=== PATIENT | female | born 1995 | race African-American/Black ===

== ENCOUNTER 2017-10-14 06:30 | Inpatient (IN) ==
[2017-10-14] MEDS ORDERED: LR 1000 ML IV 1,000 ML IV ONE (06:34)
[2017-10-14] MEDS ORDERED: AMPICILLIN VIAL 2 GRAM ONE (06:35)
[2017-10-14] MEDS ORDERED: D5LR 1L W PITOCIN 10 UNITS/L 10 UNITS/1,000 ML BAG IV ONE (06:35)
[2017-10-14] MEDS ORDERED: NS 100 ML IV 100 ML IV ONE (06:35)
[2017-10-14] MEDS ORDERED: D5 1/2 NS 1L W PITOCIN 20 UNITS/L 20 UNITS/1,000 ML BAG IV ONE ×2 (06:35→08:38)
[2017-10-14] MEDS ORDERED: NAROPIN EPIDURAL 0.2% + FENTANYL 90MCG 60 ML EPI ONE (06:35)
[2017-10-14] MEDS ORDERED: D5 1/2 NS 1000 ML 1,000 ML IV ONE (06:36)
[2017-10-14] MEDS ORDERED: FENTANYL INJ 100 mcg ONE (06:36)
[2017-10-14] MEDS ORDERED: PITOCIN IVP ONE (06:44)
[2017-10-14] MEDS ORDERED: D5LR 1L W PITOCIN 10 UNITS/L 10 UNITS/1,000 ML BAG IV PRN (06:44)
[2017-10-14] MEDS ORDERED: NUBAIN INJ 200 MG VIAL MULTIDOSE IVP PRN (06:44)
[2017-10-14] MEDS ORDERED: REGLAN INJ 10 MG VIAL IVP PRN ×2 (06:44→09:37)
[2017-10-14] MEDS ORDERED: AMPICILLIN VIAL 2 GRAM 2 G in NS 100 ML IV + SPIKE MINIBAG* 100 ML IV SCH (06:44)
[2017-10-14] MEDS ORDERED: MORPHINE SULFATE INJ 2 MG INJ IVP PRN (06:44)
[2017-10-14] MEDS ORDERED: PHENERGAN INJ 25 MG IV PRN (06:44)
[2017-10-14] MEDS ORDERED: D5 1/2 NS 1000 ML 1,000 ML IV SCH (06:44)
--- NOTE | 2017-10-14 07:22 | DR.OB ---
OB Quick Note - Assessment/Plan Assessment/Plan: L&D 10/14/17 at 7:00am S-No complaint. O-Afebrile,VSS IMY=395 with good LTV, +accel, no decel. CTX=occ, mild CVX=2cm/50%/-1/VTX AROM with clear fluid. IUPC and FSE placed. A-IUP at 38 6/7 weeks for induction +GBS Sickle Cell Trait anemia P-Begin pitocin induction Begin Ampicillin in labor for +GBS Anticipate
[2017-10-14] MEDS ORDERED: DURAMORPH ONE (08:02)
[2017-10-14] MEDS ORDERED: ANCEF 1 GRAM IV PREMIX* 1 G/50 ML BAG IV ONE (08:04)
[2017-10-14] MEDS ORDERED: PHENERGAN INJ 25 MG IVP PRN (09:37)
[2017-10-14] MEDS ORDERED: ZOFRAN INJ 4 MG VIAL IVP PRN ×2 (09:37→10:57)
[2017-10-14] MEDS ORDERED: DILAUDID INJ IVP PRN (09:37)
[2017-10-14] MEDS ORDERED: BENADRYL INJ 50 MG VIAL IVP PRN (09:37)
[2017-10-14] MEDS ORDERED: AMPICILLIN VIAL 1 GRAM 1 G in NS 50 ML IV + SPIKE MINIBAG* 50 ML IV SCH (10:45)
[2017-10-14] MEDS ORDERED: ADACEL or BOOSTRIX TDaP VACCINE IM ONE ×2 (10:57→14:32)
[2017-10-14] MEDS ORDERED: NARCAN INJ IVP PRN (10:57)
[2017-10-14] MEDS ORDERED: D5 1/2 NS 1000 ML 1,000 ML with PITOCIN 20 UNITS IV SCH ×2 (10:57)
[2017-10-14] MEDS ORDERED: MYLICON TAB 80 MG CHEW PO PRN (10:57)
[2017-10-14] MEDS ORDERED: PERCOCET TAB 5/325 MG PO PRN (10:57)
[2017-10-14] MEDS: TORADOL 30 MG VIAL IVP PRN (11:23)
[2017-10-14] MEDS: BENADRYL INJ 50 MG VIAL IVP PRN ×2 (11:55→22:48)
[2017-10-14] MEDS ORDERED: PITOCIN ONE (15:34)
[2017-10-14] MEDS ORDERED: XYLOCAINE 1 % (PLAIN) ONE (15:34)
[2017-10-14] MEDS ORDERED: MARCAINE 0.5% ONE (15:34)
[2017-10-14] MEDS ORDERED: DIPRIVAN VIAL ONE (15:34)
[2017-10-14] MEDS: ZANTAC PO SCH (20:31)
[2017-10-15] MEDS: TORADOL 30 MG VIAL IVP PRN (03:42)
[2017-10-15 06:48] LABS: HEMATOCRIT 30.5 % (36.0-47.0); HEMOGLOBIN 10.2 g/dL (12.0-16.0)
[2017-10-15] MEDS ORDERED: PERCOCET TAB 5/325 MG PO PRN (08:00)
[2017-10-15] MEDS: ZANTAC PO SCH ×2 (08:06→20:17)
[2017-10-15] MEDS: PRENATAL PLUS PO SCH (08:07)
[2017-10-15] MEDS: COLACE CAP 100 MG PO SCH ×2 (09:54→20:17)
[2017-10-15] MEDS: MOTRIN TAB 800 MG PO PRN ×2 (13:40→20:18)
[2017-10-15] MEDS: BACTROBAN TOPICAL OINT TOP SCH ×2 (13:41→21:55)
[2017-10-16] MEDS: BACTROBAN TOPICAL OINT TOP SCH (05:47)
[2017-10-16] MEDS ORDERED: DEPO-PROVERA CONTRACEPTIVE INJ IM ONE (06:09)
[2017-10-16 08:02] VITALS: BP 98/54
[2017-10-16] MEDS: PRENATAL PLUS PO SCH (08:25)
[2017-10-16] MEDS: COLACE CAP 100 MG PO SCH (08:25)
[2017-10-16] MEDS: ZANTAC PO SCH (08:25)
== END 2017-10-16 12:05 | disposition home or self-care (01) | DRG 766 ==
LOC: LD 06:31 → MED/SURG 10:49
PROVIDERS: ADMIT Specialist; ATTEND Specialist
DX: N85.8 Other specified noninflammatory disorders of uterus; O99.824 Streptococcus B carrier state complicating childbirth; Z23 Encounter for immunization; O99.013 Anemia complicating pregnancy, third trimester; O34.211 Maternal care for low transverse scar from previous cesarean delivery; Z37.0 Single live birth; D50.8 Other iron deficiency anemias; Z01.818 Encounter for other preprocedural examination; O99.89 Other specified diseases and conditions complicating pregnancy, childbirth and the puerperium; Z3A.38 38 weeks gestation of pregnancy; D57.3 Sickle-cell trait; O77.8 Labor and delivery complicated by other evidence of fetal stress
CPT/HCPCS: 36415; 80048; 80307; 81001; 85014; 85018; 85025; 86592; 86850; 86900; 86901; 87086; 87088; 87186; 90715; A4222; S0020; S0197; G0434; J0290; J0690; J1050; J1200; J1885; J2590; J2704; J3010; J3490; J7050; J7120; S5010

== ENCOUNTER 2020-02-03 06:24 | Inpatient (IN) ==
[2020-02-03] MEDS ORDERED: LR 1000 ML IV 1,000 ML IV ONE (06:34)
[2020-02-03] MEDS ORDERED: ANCEF 1 GRAM IV PREMIX* 2 G/100 ML BAG IV ONE (06:35)
[2020-02-03] MEDS ORDERED: D5 1/2 NS 1000 ML 1,000 ML IV SCH (06:46)
[2020-02-03] MEDS ORDERED: ANCEF VIAL 1 GRAM IVP ONE (06:46)
[2020-02-03] MEDS ORDERED: DILAUDID INJ ONE (06:58)
[2020-02-03] MEDS ORDERED: PITOCIN ONE ×2 (06:58→07:15)
[2020-02-03] MEDS ORDERED: NS 1000 ML 1,000 ML ONE ×2 (06:59→07:05)
[2020-02-03] MEDS ORDERED: MARCAINE SPINAL ONE (07:15)
[2020-02-03] MEDS ORDERED: NORMODYNE INJ 100 MG VIAL ONE (07:15)
[2020-02-03] MEDS ORDERED: XYLOCAINE 2 % (PLAIN) ONE (07:15)
[2020-02-03] MEDS ORDERED: EPHEDRINE SULFATE INJ ONE (07:15)
[2020-02-03] MEDS ORDERED: DILAUDID INJ IVP PRN (08:45)
[2020-02-03] MEDS ORDERED: REGLAN INJ 10 MG VIAL IVP PRN ×2 (08:45→09:07)
[2020-02-03] MEDS ORDERED: BENADRYL INJ 50 MG VIAL IVP PRN ×2 (08:45→09:07)
[2020-02-03] MEDS ORDERED: PHENERGAN INJ 25 MG IM PRN (08:45)
[2020-02-03] MEDS ORDERED: ZOFRAN INJ 4 MG VIAL IVP PRN ×2 (08:45→09:07)
[2020-02-03] MEDS ORDERED: TORADOL 30 MG VIAL IVP PRN (09:07)
[2020-02-03] MEDS ORDERED: D5 1/2 NS 1000 ML 1,000 ML with PITOCIN 20 UNITS IV SCH ×2 (09:07)
[2020-02-03] MEDS ORDERED: ADACEL or BOOSTRIX TDaP VACCINE IM ONE (09:07)
[2020-02-03] MEDS ORDERED: NARCAN INJ IVP PRN (09:07)
[2020-02-03] MEDS ORDERED: PERCOCET TAB 5/325 MG PO PRN (09:07)
[2020-02-03] MEDS ORDERED: MYLICON TAB 80 MG CHEW PO PRN (09:07)
[2020-02-03] MEDS: PRENATAL PLUS PO SCH (10:45)
[2020-02-03] MEDS ORDERED: NS IRRIGATION* 500 ML IR ONE (11:17)
[2020-02-03] MEDS ORDERED: NS 250 ML IV 250 ML IV ONE (16:36)
[2020-02-04 04:25] LABS: HEMATOCRIT 28.1 % (36.0-47.0)
[2020-02-04 04:32] LABS: HEMOGLOBIN 9.3 g/dL (12.0-16.0)
[2020-02-04] MEDS ORDERED: PERCOCET TAB 5/325 MG PO PRN (07:19)
[2020-02-04] MEDS ORDERED: COLACE CAP 100 MG PO ONE (07:40)
[2020-02-04] MEDS: PRENATAL PLUS PO SCH (08:02)
[2020-02-04] MEDS: COLACE CAP 100 MG PO SCH ×2 (08:02→21:00)
[2020-02-04] MEDS: MOTRIN TAB 800 MG PO PRN ×2 (11:08→21:00)
[2020-02-04] MEDS: BACTROBAN TOPICAL OINT TOP SCH ×2 (14:22→21:00)
[2020-02-04] MEDS: FERROUS GLUCONATE PO SCH (17:10)
[2020-02-05] MEDS: BACTROBAN TOPICAL OINT TOP SCH (06:23)
[2020-02-05] MEDS: FERROUS GLUCONATE PO SCH (06:24)
[2020-02-05] MEDS ORDERED: DEPO-PROVERA CONTRACEPTIVE INJ IM ONE (07:12)
[2020-02-05] MEDS: PRENATAL PLUS PO SCH (08:26)
[2020-02-05] MEDS: COLACE CAP 100 MG PO SCH (08:26)
[2020-02-05 11:40] VITALS: BP 107/60
== END 2020-02-05 11:30 | disposition home or self-care (01) | DRG 788 ==
LOC: LD 06:24 → MED/SURG 09:23
PROVIDERS: ADMIT Specialist; ATTEND Specialist